=== PATIENT | female | born 1930 | race Caucasian/White ===

== ENCOUNTER 2017-04-14 16:46 | Inpatient (IN) | payer MEDICARE, OTHER ==
[~2017-04-14] VITALS: Ht 160 cm; Wt 74.4 kg
[2017-04-14] MEDS: HEPARIN SODIUM - SQ 10,000 UNITS/ML VIAL SQ SCH (09:00)
[~2017-04-14 16:46] MED LIST: ASPI81 PO; FLUO10TA PO; HYDROCODONE/APAP PO; LISI2.5T3 PO; MOBI7.5S PO; OMEP20TA PO; SIMV20TA PO; TEMA7.5C9 PO
[2017-04-14 17:01] VITALS: BP 212/98; PULSE 105; RESP 21; TEMP 98.7; O2SAT 95
[2017-04-14 17:12] VITALS: BP 212/98; PULSE 106; RESP 19; O2SAT 97
[2017-04-14] MEDS ORDERED: ACETAMINOPHEN 325 MG TAB PO ONE (17:30)
--- NOTE | 2017-04-14 18:57 | RADRPT ---
EXAM DATE/TIME: 04/14/2017 18:04 [facility] COMPARISON: No previous studies available for comparison. INDICATIONS : Left hip pain post fall. MEDICAL HISTORY : Hypertension. SURGICAL HISTORY : Right knee replacement. ENCOUNTER: Initial ACUITY: 1 day PAIN SCORE: 9/10 LOCATION: Left hip. FINDINGS: There is diffuse narrowing of the left hip joint. A fracture is not seen. There is some hypertrophic change at the superior lateral aspect of the left femoral head. Some hypertrophic change seen at the superior left greater trochanter. Vascular calcifications are seen. There is degenerative change in t he lower lumbar spine. There is joint space narrowing seen at the right hip. CONCLUSION: Joint space narrowing seen at the hips bilaterally. An acute fracture is not seen. Rob Churchill MD on April 14, 2017 at 18:54 Board Certified Radiologist. This report was verified electronically.
[2017-04-14 19:05] VITALS: BP 209/95; PULSE 98; RESP 20; O2SAT 96
--- NOTE | 2017-04-14 19:12 | RADRPT ---
EXAM DATE/TIME: 04/14/2017 18:15 [facility] COMPARISON: No previous studies available for comparison. INDICATIONS : Patient fell out of wheelchair face first, abrasion and swollen forehead RADIATION DOSE: 35.52 CTDIvol (mGy) MEDICAL HISTORY : Cerebrovascular disease. Cardiovascular disease Hypertension. SURGICAL HISTORY : None. ENCOUNTER: Initial ACUITY: 1 day PAIN SCALE: 5/10 LOCATION: cranial TECHNIQUE: Multiple contiguous axial images were obtained of the head. Using automated exposure control and adj ustment of the mA and/or kV according to patient size, radiation dose was kept as low as reasonably a chievable to obtain optimal diagnostic quality images. DICOM format image data is available electro nically for review and comparison. FINDINGS: CEREBRUM: There is a lesion right frontal anterior right lobes. There is expansion of the right lateral ventric le. There is a small lacunar infarct at the left basal ganglia. The ventricles are otherwise normal f or age. There is mild decreased density in the periventricular white matter likely due to small vess el ischemic demyelination. No evidence of midline shift, mass lesion, hemorrhage or acute infarction. No extra-axial fluid collections are seen. POSTERIOR FOSSA: The cerebellum and brainstem are intact. The 4th ventricle is midline. The cerebellopontine angle i s unremarkable. EXTRACRANIAL: The visualized portion of the orbits is intact. There is focal soft tissue swelling in the left front al scalp region. There is a small amount of air within the soft tissues in this region. SKULL: The calvaria is intact. No evidence of skull fracture. CONCLUSION: 1. No acute intracranial abnormality. 2. 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 3. Left frontal scalp injury. Rob Churchill MD on April 14, 2017 at 19:07 Board Certified Radiologist. This report was verified electronically.
--- NOTE | 2017-04-14 19:15 | RADRPT ---
EXAM DATE/TIME: 04/14/2017 18:15 [facility] COMPARISON: No previous studies available for comparison. INDICATIONS : Patient fell out of wheelchair face first. RADIATION DOSE: 20.97 CTDIvol (mGy) MEDICAL HISTORY : Cardiovascular disease. Cerebrovascular disease. Hypertension. SURGICAL HISTORY : None. ENCOUNTER: Initial ACUITY: 1 day PAIN SCALE: 5/10 LOCATION: neck TECHNIQUE: Volumetric scanning of the cervical spine was performed. Multiplanar reconstructions in the sagittal, coronal and oblique axial planes were performed. Using automated exposure control and adjustment o f the mA and/or kV according to patient size, radiation dose was kept as low as reasonably achievable to obtain optimal diagnostic quality images. DICOM format image data is available electronically f or review and comparison. FINDINGS: VERTEBRAE: Normal vertebral body height. There is hypertrophic change at the C1-C2 articulation. ALIGNMENT: No evidence of subluxation. C2-C3: The bony spinal canal is normal in size. No evidence of disc bulge or herniation. The neural forami na are bilaterally patent. There is facet hypertrophy. C3-C4: The bony spinal canal is normal in size. No evidence of disc bulge or herniation. The neural forami na are bilaterally patent. There is facet hypertrophy. C4-C5: The bony spinal canal is normal in size. No evidence of disc bulge or herniation. The neural forami na are bilaterally patent. There is facet hypertrophy. C5-C6: The bony spinal canal is normal in size. No evidence of disc bulge or herniation. The neural forami na are bilaterally patent. There is facet hypertrophy. C6-C7: The disc demonstrates decreased height. There is chronic endplate sclerosis seen at this level. A sig nificant impression on the thecal sac is not seen. There is uncovertebral hypertrophy. The bony spina l canal is normal in size. No evidence of disc bulge or herniation. The neural foramina are bilater ally patent. There is facet hypertrophy. C7-T1: The bony spinal canal is normal in size. No evidence of disc bulge or herniation. The neural forami na are bilaterally patent. CONCLUSION: Degenerative change. No acute bony abnormality is seen. Rob Churchill MD on April 14, 2017 at 19:11 Board Certified Radiologist. This report was verified electronically.
[2017-04-14] MEDS ORDERED: MOBI7.5T PO (19:16)
[2017-04-14] MEDS ORDERED: COLA100C5 PO (19:16)
[2017-04-14] MEDS ORDERED: SENN8.6T36 PO (19:16)
[2017-04-14] MEDS ORDERED: TRAM50TA PO (19:16)
[2017-04-14] MEDS ORDERED: ZANT150T2 PO (19:16)
[2017-04-14] MEDS ORDERED: TYLE325T PO (19:16)
[2017-04-14] MEDS ORDERED: ZOLO25TA PO (19:16)
[2017-04-14] MEDS ORDERED: ALBU0.63 NEB (19:16)
[2017-04-14] MEDS ORDERED: LISI40TA PO (19:16)
[2017-04-14] MEDS ORDERED: GUAI100S7 PO (19:16)
[2017-04-14] MEDS ORDERED: MELA3TAB52 PO (19:16)
[2017-04-14] MEDS ORDERED: LIPI10TA PO (19:16)
[2017-04-14] MEDS ORDERED: AMLO5 PO (19:16)
--- NOTE | 2017-04-14 19:25 | PD ---
HPI Chief Complaint: Fall Time Seen by Provider: 17:28 (Arlette Andrews MD) Time Seen by Provider: 21:07 (Ivan Ferguson MD) Travel History International Travel<30 days: No Contact w/Intl Traveler<30days: No Traveled to known affect area: No (Arlette Andrews MD) History of Present Illness HPI Patient is an 86-year-old female who comes in after she fell out of her wheelchair today. She says that she does not know how she fell out, she feels like somebody pushed her. She says she landed on her head in the front side of her body. She denies any loss of consciousness. She says she has pain to the front of her head. She denies any neck pain or back pain. She denies any chest pain or abdominal pain. She denies any blurred vision. She denies any dizziness or nausea or vomiting. (Arlette Andrews MD) [facility] Past Medical History Arthritis: No Asthma: No Autoimmune Disease: No Blood Disorders: No Anxiety: Yes Depression: Yes Heart Rhythm Problems: No Cancer: No Cardiovascular Problems: Yes High Cholesterol: Yes Chemotherapy: No Chest Pain: Yes Congestive Heart Failure: Yes COPD: No Cerebrovascular Accident: Yes Diminished Hearing: No Endocrine: No Gastrointestinal Disorders: Yes GERD: No Genitourinary: No Headaches: No Hepatitis: No Hiatal Hernia: No Hypertension: Yes Immune Disorder: No Musculoskeletal: Yes Neurologic: Yes Psychiatric: Yes Respiratory: Yes Immunizations Current: Yes Myocardial Infarction: Yes Radiation Therapy: No Seizures: Yes Sleep Apnea: No Ulcer: No Tetanus Vaccination: Unknown PNEUMOCCOCAL Vaccine (Year): 1 (Arlette Andrews MD) Past Surgical History Abdominal Surgery: No AICD: No Cardiac Surgery: Yes (by pass surgery) Coronary Artery Bypass Graft: Yes Ear Surgery: No Endocrine Surgery: No Eye Surgery: Yes (right eye cataract removed) Genitourinary Surgery: No Gynecologic Surgery: No Joint Replacement: Yes Oral Surgery: No Pacemaker: No Thoracic Surgery: No Other Surgery: Yes (Arlette Andrews MD) Social History Alcohol Use: No Tobacco Use: No Substance Use: No (Arlette Andrews MD) Allergies-Medications (Allergen,Severity, Reaction): Coded Allergies: No Known Allergies (Verified Adverse Reaction, Unknown, 04/14/17) Reported Meds & Prescriptions Reported Meds & Active Scripts Active Reported Tramadol (Tramadol HCl) 50 Mg Tab 50 Mg PO Q6H PRN Lipitor (Atorvastatin Calcium) 10 Mg Tab 10 Mg PO HS Melatonin 3 Mg Tab 3 Mg PO HS Colace (Docusate Sodium) 100 Mg Capsule 100 Mg PO HS Mobic (Meloxicam) 7.5 Mg Tab 7.5 Mg PO DAILY Lisinopril 40 Mg Tab 40 Mg PO DAILY Norvasc (Amlodipine Besylate) 5 Mg Tab 5 Mg PO DAILY Zantac (Ranitidine HCl) 150 Mg Tab 150 Mg PO BID Senna-Tabs (Sennosides) 8.6 Mg Tab 8.6 Mg PO HS Albuterol Neb (Albuterol Sulfate) 0.63 Mg/3 Ml Neb 0.63 Mg NEB Q6HR PRN Guaifenesin Liq (Guaifenesin) 100 mg/5 ML Soln 200 Mg PO Q4H PRN Tylenol (Acetaminophen) 325 Mg Tab 650 Mg PO Q4H PRN Zoloft (Sertraline HCl) 25 Mg Tab 25 Mg PO DAILY (Ivan Ferguson MD) Review of Systems Except as stated in HPI: all other systems reviewed are Neg General / Constitutional: No: Fever, Chills Eyes: No: Blurred Vision HENT: Positive: Headaches Cardiovascular: No: Chest Pain or Discomfort Respiratory: No: Shortness of Breath Gastrointestinal: No: Nausea, Vomiting Musculoskeletal: No: Edema Skin: No Rash, No Change in Pigmentation Neurologic: No: Weakness, Dizziness (Arlette Andrews MD) Physical Exam Narrative GENERAL: Awake and alert, in no acute distress. SKIN: Focused skin assessment warm/dry. Hematoma to the left forehead. HEAD: Atraumatic. Normocephalic. EYES: Pupils equal and round. No scleral icterus. ENT: Mucous membranes pink and moist. NECK: Trachea midline. No JVD. No cervical spine tenderness. CARDIOVASCULAR: Regular rate and rhythm. No murmur appreciated. RESPIRATORY: No accessory muscle use. Clear to auscultation. No chest wall tenderness. GASTROINTESTINAL: Abdomen soft, non-tender, nondistended. MUSCULOSKELETAL: No obvious deformities. No clubbing. No cyanosis. No edema. Slight tenderness to palpation of the left hip. Able to fully flex and extend both hips. No tenderness to the upper extremities. No tenderness to the thoracic or lumbar spine. NEUROLOGICAL: Awake and alert. No obvious cranial nerve deficits. Motor grossly within normal limits. Normal speech. PSYCHIATRIC: Appropriate mood and affect; insight and judgment normal. (Arlette Andrews MD) Data Data Last Documented VS Vital Signs Date Time Temp Pulse Resp B/P (MAP) Pulse Ox O2 Delivery O2 Flow Rate FiO2 04/14/17 19:05 98 20 209/95 (133) 96 Room Air 04/14/17 17:01 98.7 (Ivan Ferguson MD) Orders Orders Ct Brain W/O Iv Contrast(Rout) (04/14/17 ) Ct Cerv Spine W/O Contrast (04/14/17 ) Acetaminophen (Tylenol) (04/14/17 17:30) Hip, Uni(Ap&Lat) W Ap Pelvis (04/14/17 ) Ed Discharge Order (04/14/17 19:25) Clonidine (Catapres) (04/14/17 19:30) Urinalysis - C+S If Indicated (04/14/17 20:04) Complete Blood Count With Diff (04/14/17 20:04) Comprehensive Metabolic Panel (04/14/17 20:04) Troponin I (04/14/17 20:04) Electrocardiogram (04/14/17 ) Urine Culture (04/14/17 20:30) Levofloxacin (Levaquin) (04/14/17 20:45) Aspirin Chew (Aspirin Chew) (04/14/17 21:15) Nitroglycerin 2% Oint (Nitroglycerin 2% (04/14/17 21:15) (Ivan Ferguson MD) Labs Laboratory Tests Test 04/14/17 20:20 04/14/17 20:30 White Blood Count 16.5 TH/MM3 Red Blood Count 4.76 MIL/MM3 Hemoglobin 14.0 GM/DL Hematocrit 42.2 % Mean Corpuscular Volume 88.5 FL Mean Corpuscular Hemoglobin 29.3 PG Mean Corpuscular Hemoglobin Concent 33.1 % Red Cell Distribution Width 14.3 % Platelet Count 371 TH/MM3 Mean Platelet Volume 6.4 FL Neutrophils (%) (Auto) 78.6 % Lymphocytes (%) (Auto) 12.4 % Monocytes (%) (Auto) 7.3 % Eosinophils (%) (Auto) 0.8 % Basophils (%) (Auto) 0.9 % Neutrophils # (Auto) 12.9 TH/MM3 Lymphocytes # (Auto) 2.1 TH/MM3 Monocytes # (Auto) 1.2 TH/MM3 Eosinophils # (Auto) 0.1 TH/MM3 Basophils # (Auto) 0.2 TH/MM3 CBC Comment DIFF FINAL Differential Comment Blood Urea Nitrogen 22 MG/DL Creatinine 0.88 MG/DL Random Glucose 106 MG/DL Total Protein 7.5 GM/DL Albumin 3.6 GM/DL Calcium Level 9.1 MG/DL Alkaline Phosphatase 155 U/L Aspartate Amino Transf (AST/SGOT) 20 U/L Alanine Aminotransferase (ALT/SGPT) 21 U/L Total Bilirubin 0.5 MG/DL Sodium Level 138 MEQ/L Potassium Level 4.1 MEQ/L Chloride Level 107 MEQ/L Carbon Dioxide Level 24.6 MEQ/L Anion Gap 6 MEQ/L Estimat Glomerular Filtration Rate 61 ML/MIN Troponin I 0.25 NG/ML Urine Color LIGHT-YELLOW Urine Turbidity CLOUDY Urine pH 6.5 Urine Specific Cucumber 1.013 Urine Protein 30 mg/dL Urine Glucose (UA) NEG mg/dL Urine Ketones NEG mg/dL Urine Occult Blood SMALL Urine Nitrite POS Urine Bilirubin NEG Urine Urobilinogen LESS THAN 2.0 MG/DL Urine Leukocyte Esterase LARGE Urine RBC 67 /hpf Urine WBC /hpf Urine Squamous Epithelial Cells 5 /hpf Urine Transitional Epithelial Cells 2 /hpf Urine Amorphous Sediment OCC Urine Bacteria MANY /hpf Urine Mucus FEW /lpf Microscopic Urinalysis Comment CULTURE INDICATED (Ivan Ferguson MD) [facility] Medical Decision Making Medical Screen Exam Complete: Yes Emergency Medical Condition: Yes Medical Record Reviewed: Yes Differential Diagnosis ICH versus fall versus hematoma Narrative Course Patient is a 86-year-old female comes in after she fell out of her wheelchair. Exam shows a hematoma to the left forehead. Patient is not on blood thinners. CT head and C-spine performed show no acute abnormalities. X-ray of the hips and pelvis show no acute abnormalities. Patient given Tylenol. [facility] Advised follow-up with her primary care doctor. Advised to return to the ED as needed for any worsening symptoms. (Arlette Andrews MD) Diagnosis Primary Impression: Fall Qualified Codes: W19.XXXA - Unspecified fall, initial encounter Additional Impressions: UTI (urinary tract infection) Myocardial ischemia Admitting Information Admitting Physician Requests: Admit (Ivan Ferguson MD) Patient Instructions: Fall Prevention (ED), General Instructions Additional Instructions: Follow-up with her primary care doctor. Return to the ED as needed for any worsening symptoms. Condition: Stable Arlette Andrews MD Apr 14, 2017 19:25 Ivan Ferguson MD Apr 14, 2017 21:11
[2017-04-14] MEDS ORDERED: cloNIDine HCL 0.2 MG TAB PO ONE (19:30)
[2017-04-14 20:35] LABS: AUTOMATED NEUTROPHIL # 12.9 TH/MM3 (1.8-7.7); BASOPHIL # 0.2 TH/MM3 (0-0.2); BASOPHIL % 0.9 % (0.0-2.0); EOSINOPHIL # 0.1 TH/MM3 (0-0.4); EOSINOPHIL % 0.8 % (0.0-4.0); HEMATOCRIT 42.2 % (35.0-46.0); HEMO FLAGS DIFF FINAL; LYMPH % 12.4 % (9.0-44.0); LYMPHOCYTE # 2.1 TH/MM3 (1.0-4.8); MEAN CELL VOLUME 88.5 FL (80.0-100.0); MEAN CORPUSCULAR HEMOGLOBIN 29.3 PG (27.0-34.0); MEAN CORPUSCULAR HGB CONC 33.1 % (32.0-36.0); MONO % 7.3 % (0.0-8.0); NEUT % 78.6 % (16.0-70.0); PLATELET COUNT 371 TH/MM3 (150-450); RED BLOOD COUNT 4.76 MIL/MM3 (4.00-5.30); RED CELL DISTRIBUTION WIDTH 14.3 % (11.6-17.2); WHITE BLOOD COUNT 16.5 TH/MM3 (4.0-11.0)
[2017-04-14 20:41] LABS: BACTERIA, URINE MANY /hpf; BLOOD, URINE SMALL (NEG); COMMENT (UR) CULTURE INDICATED; CULTURE IF INDICATED CULTURE INDICATED; GLUCOSE,URINE NEG (NEG); KETONE, URINE NEG (NEG); MUCUS URINE FEW /lpf (OCC); NITRITE,URINE POS (NEG); PH, URINE 6.5 (5.0-8.5); SQUAMOUS EPITHELIAL CELL URINE 5 /hpf (0-5); TRANSITIONAL EPI CELLS, URINE 2 /hpf; URINE COLOR LIGHT-YELLOW (YELLW/STRAW)
[2017-04-14] MEDS ORDERED: LEVOFLOXACIN 750 MG TAB PO ONE (20:45)
[2017-04-14 20:54] LABS: ANION GAP 6 MEQ/L (5-15); AST (GOT) 20 U/L (15-37); BICARBONATE 24.6 MEQ/L (21.0-32.0); BLOOD UREA NITROGEN 22 MG/DL (7-18); CHLORIDE 107 MEQ/L (98-107); GLOMERULAR FILTRATION RATE 61 ML/MIN (>89); POTASSIUM 4.1 MEQ/L (3.5-5.1); SODIUM (NA) 138 MEQ/L (136-145)
[2017-04-14 20:55] LABS: ALT (GPT) 21 U/L (10-53)
[2017-04-14 20:59] LABS: ALKALINE PHOSPHATASE 155 U/L (45-117); TOTAL BILIRUBIN ADULT 0.5 MG/DL (0.2-1.0)
[2017-04-14 21:15] VITALS: BP 120/56; PULSE 93; RESP 20; O2SAT 96
[2017-04-14] MEDS ORDERED: NITROGLYCERIN 2% OINT 1 GM PACKET TOPICAL ONE (21:15)
[2017-04-14] MEDS ORDERED: ASPIRIN 81 MG CHEW TAB CHEW ONE (21:15)
[2017-04-14] MEDS ORDERED: SODIUM CHLORIDE 0.9% FLUSH 10 ML FLUSH IV FLUSH PRN (21:45)
--- NOTE | 2017-04-14 22:41 | RADRPT ---
EXAM DATE/TIME: 04/14/2017 22:25 [facility] COMPARISON: No previous studies available for comparison. INDICATIONS : Left 2nd digit pain ,swelling and bruising. MEDICAL HISTORY : None. SURGICAL HISTORY : None. ENCOUNTER: Initial ACUITY: 1 day PAIN SCORE: 10/10 LOCATION: Left 2nd digit FINDINGS: There is joint space narrowing at the second through fifth DIP and PIP joints. There is hypertrophic change at the second PIP joint. There is hypertrophic change at the first carpometacarpal joint regio n. No acute fractures seen. The bones appear osteopenic. CONCLUSION: Degenerative change. Rob Churchill MD on April 14, 2017 at 22:38 Board Certified Radiologist. This report was verified electronically.
[2017-04-14 22:55] VITALS: BP 107/57; PULSE 82; RESP 18; TEMP 97.9; O2SAT 95
[2017-04-14 22:56] LABS: APTT (PATIENT) 27.1 SEC (24.3-30.1); PROTHROMBIN TIME - PATIENT 10.9 SEC (9.8-11.6)
[2017-04-15] VITALS (7 sets, daily range): BP systolic 93–155; BP diastolic 56–70; PULSE 70–101; RESP 20; TEMP 98–99.3; O2SAT 93–100
[2017-04-15] MEDS ORDERED: PILL SPLITTER OTHER PRN ×2 (00:30→14:30)
[2017-04-15] MEDS ORDERED: traMADol HCL 50 MG TAB PO PRN (00:30)
--- NOTE | 2017-04-15 00:54 | HHI.HP ---
[facility] Chino Queen MD Admission Diagnosis myocardial ischemia Diagnoses: Travel History International Travel<30 Days: No Contact w/Intl Traveler <30 Da: No Traveled to Known Affected Are: No History of Present Illness 86-year-old female presents to the emergency department after falling out of her wheelchair onto her face. The patient states she is not sure how she fell, but it felt like someone pushed her from behind. She denies any loss of consciousness. The patient has a significant hematoma over her left eye and forehead. CT of the head showed no acute intracranial abnormality with a left frontal scalp injury. The patient reports neck pain, nontender to palpation. CT of the neck without any bony abnormalities. During her workup in the emergency department, the patient was found to have a leukocytosis of 16.5. UA consistent with UTI. The patient reports dysuria. She was tachycardic to 106 in the emergency department. Troponin elevated to 0.25. EKG showed ST depression in I, AVL and flattened T waves in V5/V6. Patient denies chest pain. She has a history significant for coronary artery disease and is status post CABG 4 in 2005. Review of Systems Denies fever or chills Denies blurry vision, otorrhea, rhinorrhea Denies sore throat and cough No chest pain, palpitations, shortness of breath No abdominal pain Denies constipation/diarrhea/nausea/vomiting Denies muscle pain/weakness No rashes Past Family Social History Past Medical History Hyperlipidemia Hypertension Neuropathy CAD status post CABG 4 in 2005 CVA Past Surgical History CABG 4 in 2005 Left knee replacement Prosthetic leg - right Right carotid endarterectomy Reported Medications Reported Meds & Active Scripts Active Reported Tramadol (Tramadol HCl) 50 Mg Tab 50 Mg PO Q6H PRN Lipitor (Atorvastatin Calcium) 10 Mg Tab 10 Mg PO HS Melatonin 3 Mg Tab 3 Mg PO HS Colace (Docusate Sodium) 100 Mg Capsule 100 Mg PO HS Mobic (Meloxicam) 7.5 Mg Tab 7.5 Mg PO DAILY Lisinopril 40 Mg Tab 40 Mg PO DAILY Norvasc (Amlodipine Besylate) 5 Mg Tab 5 Mg PO DAILY Zantac (Ranitidine HCl) 150 Mg Tab 150 Mg PO BID Senna-Tabs (Sennosides) 8.6 Mg Tab 8.6 Mg PO HS Albuterol Neb (Albuterol Sulfate) 0.63 Mg/3 Ml Neb 0.63 Mg NEB Q6HR PRN Guaifenesin Liq (Guaifenesin) 100 mg/5 ML Soln 200 Mg PO Q4H PRN Tylenol (Acetaminophen) 325 Mg Tab 650 Mg PO Q4H PRN Zoloft (Sertraline HCl) 25 Mg Tab 25 Mg PO DAILY Allergies: Coded Allergies: No Known Allergies (Verified Allergy, Unknown, 04/14/17) Family History Remote family history of diabetes. Social History Denies alcohol, tobacco or illicit drugs. Physical Exam Vital Signs Vital Signs Date Time Temp Pulse Resp B/P (MAP) Pulse Ox O2 Delivery O2 Flow Rate FiO2 04/14/17 22:50 04/14/17 21:15 93 20 120/56 (77) 96 Room Air 04/14/17 19:05 98 20 209/95 (133) 96 Room Air 04/14/17 17:12 106 18 96 Room Air 04/14/17 17:12 106 19 212/98 (136) 97 Room Air 04/14/17 17:04 105 21 95 Room Air 04/14/17 17:01 98.7 105 21 212/98 (136) 95 Physical Exam GENERAL: Elderly female lying in bed SKIN: Large hematoma on left forehead and surrounding left eye. HEAD: Normocephalic. No temporal or scalp tenderness. EYES: Pupils equal round and reactive. Extraocular motions intact. No scleral icterus. No injection or drainage. ENT: Nose without bleeding, purulent drainage or septal hematoma. Throat without erythema, tonsillar hypertrophy or exudate. Uvula midline. Airway patent. NECK: Trachea midline. No JVD or lymphadenopathy. Supple, nontender, no meningeal signs. No step-offs or point tenderness. CARDIOVASCULAR: Regular rate and rhythm. 3/5 systolic ejection murmur. RESPIRATORY: Clear to auscultation. Breath sounds equal bilaterally. No wheezes , rales, or rhonchi. GASTROINTESTINAL: Abdomen soft, non-tender, nondistended. No hepato-splenomegaly , or palpable masses. No guarding. MUSCULOSKELETAL: Extremities without clubbing, cyanosis, or edema. No joint tenderness, effusion, or edema noted. Right prosthesis in place. NEUROLOGICAL: Awake and alert. Cranial nerves II through XII intact. Motor and sensory grossly within normal limits. Normal speech. A&O 3. Laboratory Laboratory Tests Test 04/14/17 20:20 04/14/17 20:30 04/14/17 22:35 White Blood Count 16.5 Red Blood Count 4.76 Hemoglobin 14.0 Hematocrit 42.2 Mean Corpuscular Volume 88.5 Mean Corpuscular Hemoglobin 29.3 Mean Corpuscular Hemoglobin Concent 33.1 Red Cell Distribution Width 14.3 Platelet Count 371 Mean Platelet Volume 6.4 Neutrophils (%) (Auto) 78.6 Lymphocytes (%) (Auto) 12.4 Monocytes (%) (Auto) 7.3 Eosinophils (%) (Auto) 0.8 Basophils (%) (Auto) 0.9 Neutrophils # (Auto) 12.9 Lymphocytes # (Auto) 2.1 Monocytes # (Auto) 1.2 Eosinophils # (Auto) 0.1 Basophils # (Auto) 0.2 CBC Comment DIFF FINAL Differential Comment Blood Urea Nitrogen 22 Creatinine 0.88 Random Glucose 106 Total Protein 7.5 Albumin 3.6 Calcium Level 9.1 Alkaline Phosphatase 155 Aspartate Amino Transf (AST/SGOT) 20 Alanine Aminotransferase (ALT/SGPT) 21 Total Bilirubin 0.5 Sodium Level 138 Potassium Level 4.1 Chloride Level 107 Carbon Dioxide Level 24.6 Anion Gap 6 Estimat Glomerular Filtration Rate 61 Troponin I 0.25 Urine Color LIGHT-YELLOW Urine Turbidity CLOUDY Urine pH 6.5 Urine Specific [place] 1.013 Urine Protein 30 Urine Glucose (UA) NEG Urine Ketones NEG Urine Occult Blood SMALL Urine Nitrite POS Urine Bilirubin NEG Urine Urobilinogen LESS THAN 2.0 Urine Leukocyte Esterase LARGE Urine RBC 67 Urine WBC Urine Squamous Epithelial Cells 5 Urine Transitional Epithelial Cells 2 Urine Amorphous Sediment OCC Urine Bacteria MANY Urine Mucus FEW Microscopic Urinalysis Comment CULTURE INDICATED Prothrombin Time 10.9 Prothromb Time International Ratio 1.0 Activated Partial Thromboplast Time 27.1 Date/Time Source Procedure Growth Status 04/14/17 20:30 Urine Clean Catch Urine Culture Pending Received Result Diagram: 04/14/17201904/14/172019 Caprini VTE Risk Assessment Caprini VTE Risk Assessment: Mod/High Risk (score >= 2) Caprini Risk Assessment Model Point Value = 1 Point Value = 2 Point Value = 3 Point Value = 5 Age 41-60 Minor surgery BMI > 25 kg/m2 Swollen legs Varicose veins or History of unexplained or recurrent spontaneous Oral contraceptives or hormone replacement Sepsis (< 1 month) Serious lung disease, including pneumonia (< 1 month) Abnormal pulmonary function Acute myocardial infarction Congestive heart failure (< 1 month) History of inflammatory bowel disease Medical patient at bed rest Age 61-74 Arthroscopic surgery Major open surgery (> 45 min) Laparoscopic surgery (> 45 min) Malignancy Confined to bed (> 72 hours) Immobilizing plaster cast Central venous access Age >= 75 History of VTE Family history of VTE Factor V Leiden Prothrombin [id number] Lupus anticoagulant Anticardiolipin antibodies Elevated serum homocysteine Heparin-induced thrombocytopenia Other congenital or acquired thrombophilia Stroke (< 1 month) Elective arthroplasty Hip, pelvis, or leg fracture Acute spinal cord injury (< 1 month) Prophylaxis Regimen Total Risk Factor Score Risk Level Prophylaxis Regimen 0-1 Low Early ambulation 2 Moderate Order ONE of the following: *Sequential Compression Device (SCD) *Heparin 5000 units SQ BID 3-4 Higher Order ONE of the following medications: *Heparin 5000 units SQ TID *Enoxaparin/Lovenox 40 mg SQ daily (WT < 150 kg, CrCl > 30 mL/min) *Enoxaparin/Lovenox 30 mg SQ daily (WT < 150 kg, CrCl > 10-29 mL/min) *Enoxaparin/Lovenox 30 mg SQ BID (WT < 150 kg, CrCl > 30 mL/min) AND/OR *Sequential Compression Device (SCD) 5 or more Highest Order ONE of the following medications: *Heparin 5000 units SQ TID (Preferred with Epidurals) *Enoxaparin/Lovenox 40 mg SQ daily (WT < 150 kg, CrCl > 30 mL/min) *Enoxaparin/Lovenox 30 mg SQ daily (WT < 150 kg, CrCl > 10-29 mL/min) *Enoxaparin/Lovenox 30 mg SQ BID (WT < 150 kg, CrCl > 30 mL/min) AND *Sequential Compression Device (SCD) Assessment and Plan Assessment and Plan 86-year-old female with a past medical history significant for hypertension, hyperlipidemia coronary artery disease status post CABG 4 in 2005, remote history of CVA and neuropathy presents after falling from her wheelchair in her assisted living facility. During her workup in the ED, the patient was found to have a leukocytosis with a urinary tract infection, elevated troponin and an abnormal EKG. 1. 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 Sepsis Patient meets sepsis criteria with leukocytosis and tachycardia Probable source is urinary tract infection Urine culture pending Blood culture pending Chest x-ray pending 3. UTI UA significant for large leukocyte esterase with positive nitrates Rocephin 4. Fall Patient sustained frontal hematoma, imaging including head and neck CT showed no intracranial bleed or bony abnormality Denies loss of consciousness Neuro checks q4h 5. HTN/HLD/Neuropathy Continue home medications FEN NPO until evaluated by cardiology NS at 75 cc/hr Electrolytes: Monitor and replete prn Holding pharmacologic anticoagulation secondary to head trauma Physician Certification 2 Midnight Certification Type: Admission for Inpatient Services Order for Inpatient Services The services are ordered in accordance with Medicare regulations or non- Medicare payer requirements, as applicable. In the case of services not specified as inpatient-only, they are appropriately provided as inpatient services in accordance with the 2-midnight benchmark. Estimated LOS (days): 2 2 days is the estimated time the patient will need to remain in the hospital, assuming treatment plan goals are met and no additional complications. Post-Hospital Plan: Not yet determined Kezia Pederson MD Apr 15, 2017 00:54
--- NOTE | 2017-04-15 01:12 | RADRPT ---
EXAM DATE/TIME: 04/15/2017 00:45 [place] COMPARISON: No previous studies available for comparison. INDICATIONS : Fever. MEDICAL HISTORY : Cerebrovascular disease. Cardiovascular disease Hypertension. SURGICAL HISTORY : CABG. ENCOUNTER: Initial ACUITY: 1 day PAIN SCORE: Non-responsive. LOCATION: Bilateral chest FINDINGS: A single view of the chest demonstrates the lungs to be symmetrically aerated without evidence of mas s, infiltrate or effusion except for minimal atelectasis left midlung zone. Clips and wires suggest C ABG. Marked atherosclerotic disease. The cardiomediastinal contours are unremarkable. Osseous struc tures are intact. CONCLUSION: Clips and wires suggest CABG. Minimal atelectasis left midlung zone. Epicardial wire overlies left ch est. Miguelito Dawn MD on April 15, 2017 at 1:10 Board Certified Radiologist. This report was verified electronically.
[2017-04-15 03:41] LABS: BASOPHIL # 0.1 TH/MM3 (0-0.2); BASOPHIL % 0.8 % (0.0-2.0); EOSINOPHIL # 0.1 TH/MM3 (0-0.4); EOSINOPHIL % 1.1 % (0.0-4.0); HEMATOCRIT 37.9 % (35.0-46.0); HEMO FLAGS DIFF FINAL; LYMPH % 15.1 % (9.0-44.0); LYMPHOCYTE # 1.9 TH/MM3 (1.0-4.8); MEAN CORPUSCULAR HEMOGLOBIN 29.2 PG (27.0-34.0); MEAN CORPUSCULAR HGB CONC 32.7 % (32.0-36.0); MONO % 9.4 % (0.0-8.0); NEUT % 73.6 % (16.0-70.0); PLATELET COUNT 317 TH/MM3 (150-450); RED BLOOD COUNT 4.26 MIL/MM3 (4.00-5.30); RED CELL DISTRIBUTION WIDTH 14.1 % (11.6-17.2); WHITE BLOOD COUNT 12.3 TH/MM3 (4.0-11.0)
[2017-04-15 04:04] LABS: BICARBONATE 25.6 MEQ/L (21.0-32.0); POTASSIUM 4.4 MEQ/L (3.5-5.1)
[2017-04-15 04:06] LABS: HDL CHOLESTEROL 45.9 MG/DL (40.0-60.0)
[2017-04-15] MEDS ORDERED: FAMOTIDINE 20 MG TAB PO SCH (09:00)
[2017-04-15] MEDS: SERTRALINE HCL 50 MG TAB PO SCH (09:40)
[2017-04-15] MEDS: SODIUM CHLORIDE 0.9% FLUSH 10 ML FLUSH IV FLUSH SCH ×2 (09:40→20:30)
[2017-04-15] MEDS: NITROGLYCERIN 2% OINT 1 GM PACKET TOP SCH ×2 (09:41→20:30)
[2017-04-15] MEDS: LISINOPRIL 20 MG TAB PO SCH (09:41)
[2017-04-15] MEDS: amLODIPine BESYLATE 5 MG TAB PO SCH (09:41)
[2017-04-15] MEDS: cefTRIAXone INJ 1,000 MG in SODIUM CHLORIDE 0.9% INJ 100 ML IV SCH (09:55)
--- NOTE | 2017-04-15 10:03 | MB ---
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 The patient hit the left side of her face sustaining significant hematoma. She denies any loss of consciousness, chest pain, palpitations, shortness of breath or dizziness. CT of the head and neck showed no acute abnormalities. The urinalysis is consistent with a UTI. He had leukocytosis. Troponin is 0.259. An EKG is showing sinus rhythm with nonspecific ST changes. The patient has been consulted to cardiology for further management and evaluation. REVIEW OF SYSTEMS Negative except for what is mentioned in the HPI. PAST MEDICAL HISTORY 1. Hyperlipidemia 2. Hypertension 3. Neuropathy 4. CAD status post CABG x4 in 2005 5. Stroke with left-sided hemiparesis and wheelchair bound. PAST SURGICAL HISTORY 1. CABG x4 2. Left knee replacement, prosthetic leg 3. Right carotid endarterectomy CARDIAC HOME MEDICATIONS 1. Lipitor 2. Lisinopril 3. Norvasc ALLERGIES NO KNOWN DRUG ALLERGIES. FAMILY HISTORY Noncontributory SOCIAL HISTORY Denies alcohol, tobacco or illicit drug use. PHYSICAL EXAMINATION VITAL SIGNS: Temperature 98.3, respiratory rate 20, heart rate 88, blood pressure 111/59, O2 sat 98% room air. GENERAL: She is awake, alert, and oriented x3 in no acute distress. NECK: No JVD, no carotid bruits. HEART: Regular rate and rhythm. No murmurs, rubs or gallops. LUNGS: Poor inspiratory effort. No wheezes or rhonchi or rales. ABDOMEN: Benign. EXTREMITIES: No cyanosis or edema. Pulses throughout. DATA CBC hemoglobin 12, hematocrit 37, platelet count 317, WBC 16.5 trending down to 12.3, INR 1. Chemistries, sodium 140, potassium 4.4, BUN 27, creatinine 0.99, troponin 0.25 and 0.34, triglycerides 130, cholesterol 146, LDL 74, HDL 45. Urinalysis significant for a urinary tract infection. Chest x-ray, no acute cardiopulmonary process. Head CT, no acute intracranial abnormality. Left frontal scalp injury. Hip and pelvis x-ray, no acute fractures. EKG normal sinus rhythm with nonspecific ST changes. ASSESSMENT/PLAN 86-year-old female with known history of coronary artery disease, hypertension, hyperlipidemia, remote history of CVA admitted after a fall. She does have minimally elevated troponins, however no symptoms of ACS. She denies dizziness , chest pain, shortness of breath, palpitations, leg edema or fatigue. She does have a UTI that is being treated with antibiotics. After a thorough discussion with the patient, as well as with her family about treatment options to treat her elevated troponins and further analyze progression of CAD or risk stratification of CAD, they would not like to have any invasive management of her CAD. They declined left heart cath or any other invasive measures. Thus continue aggressive medical management for CAD, hypertension and diabetes. The patient should be on aspirin, beta-yesenia, statin, PINEDA inhibitors and long- acting Imdur, as tolerated by heart rate and blood pressure. Continue cycling cardiac enzymes until they start trending down. Given significant face hematoma she is not candidate for anticoagulation. Get a 2-D echocardiogram to assess LV systolic function. Thank you for the opportunity to take part in the care of this patient. We will be available on as needed basis for any other questions or concerns. MD MARIA EUGENIA Moran/VIOLET /9:38 AM /9:57 AM MARCIA
--- NOTE | 2017-04-15 12:53 | HHI.PR ---
Subjective Remarks Follow-up for elevated troponin, fall, UTI Patient stated that she did have some dysuria this morning. She is very anxious to go home. She denies any headache, visual changes, any focal neurological deficits. Patient stated that she lives with her daughter and prior from this incident she was walking on her own. Objective Vitals Vital Signs Date Time Temp Pulse Resp B/P (MAP) Pulse Ox O2 Delivery O2 Flow Rate FiO2 04/15/17 12:00 98.5 91 20 125/58 (80) 95 04/15/17 08:00 98.3 88 20 93/56 (68) 98 04/15/17 08:00 Room Air 04/15/17 06:22 81 04/15/17 04:00 98.0 85 20 139/62 (87) 96 04/15/17 00:00 98.2 82 20 111/59 (76) 97 04/15/17 00:00 Room Air 04/14/17 22:55 97.9 82 18 107/57 (74) 95 04/14/17 22:50 04/14/17 21:15 93 20 120/56 (77) 96 Room Air 04/14/17 19:05 98 20 209/95 (133) 96 Room Air 04/14/17 17:12 106 18 96 Room Air 04/14/17 17:12 106 19 212/98 (136) 97 Room Air 04/14/17 17:04 105 21 95 Room Air 04/14/17 17:01 98.7 105 21 212/98 (136) 95 Result Diagram: 04/15/17 0320 04/15/17 0320 Objective Remarks GENERAL: in NAD EYES: No scleral icterus. No injection or drainage. Ecchymosis around left eye. NECK: Supple, trachea midline. No JVD or lymphadenopathy. CARDIOVASCULAR: Regular rate and rhythm without murmurs, gallops, or rubs. RESPIRATORY: Breath sounds equal bilaterally. No accessory muscle use. GASTROINTESTINAL: Abdomen soft, non-tender, nondistended. MUSCULOSKELETAL: No cyanosis, or edema. BACK: Nontender without obvious deformity. No CVA tenderness. Medications and IVs Current Medications Acetaminophen (Tylenol) 650 mg ONCE ONCE PO Last administered on 04/14/17t 17 :55; Start 04/14/17 at 17:30; Stop 04/14/17 at 17:31; Status DC Clonidine (Catapres) 0.2 mg ONCE ONCE PO Last administered on 04/14/17 19:50 ; Start 04/14/17 at 19:30; Stop 04/14/17 at 19:31; Status DC Levofloxacin (Levaquin) 750 mg ONCE ONCE PO Last administered on 04/14/17 21 :07; Start 04/14/17 at 20:45; Stop 04/14/17 at 20:46; Status DC Aspirin (Aspirin Chew) 324 mg ONCE ONCE CHEW Last administered on 04/14/17 21:12; Start 04/14/17 at 21:15; Stop 04/14/17 at 21:16; Status DC Nitroglycerin (Nitroglycerin 2% Oint) 1 inch ONCE ONCE TOPICAL Last administered on 04/14/17 21:12; Start 04/14/17 at 21:15; Stop 04/14/17 at 21 :16; Status DC Ceftriaxone Sodium 1000 mg/ Sodium Chloride 100 ml @ 200 mls/hr Q24H IV Last administered on 04/15/17 09:55; Start 04/15/17 at 09:00 Sodium Chloride (NS Flush) 2 ml BID IV FLUSH Last administered on 04/15/17 09 :40; Start 04/15/17 at 09:00 Sodium Chloride (NS Flush) 2 ml UNSCH PRN IV FLUSH FLUSH AFTER USING IV ACCESS ; Start 04/14/17 at 21:45 Nitroglycerin (Nitroglycerin 2% Oint) 1 inch Q12HR TOP Last administered on 09:41; Start 04/15/17 at 09:00 Heparin Sodium (Porcine) (Heparin Inj) 5,000 units Q12HR SQ ; Start 04/14/17 at 21:45 Amlodipine Besylate (Norvasc) 5 mg DAILY PO Last administered on 04/15/17 09: 41; Start 04/15/17 at 09:00 Atorvastatin Calcium (Lipitor) 10 mg HS PO ; Start 04/15/17 at 21:00 Sertraline HCl (Zoloft) 25 mg DAILY PO Last administered on 04/15/17 09:40; Start 04/15/17 at 09:00 Lisinopril (Prinivil) 40 mg DAILY PO Last administered on 04/15/17 09:41; Start 04/15/17 at 09:00 Famotidine (Pepcid) 20 mg Q12HR PO Last administered on 04/15/17 09:40; Start 04/15/17 at 09:00 Tramadol HCl (Ultram) 50 mg Q6H PRN PO pain 6-10; Start 04/15/17 at 00:30 Miscellaneous (Pill Splitter) 1 ea UNSCH PRN OTHER SEE LABEL COMMENTS; Start 04/15/17 at 00:30 A/P Assessment and Plan 86-year-old female with a past medical history significant for hypertension, hyperlipidemia coronary artery disease status post CABG 4 in 2005, remote history of CVA and neuropathy presents after falling from her wheelchair in her assisted living facility. During her workup in the ED, the patient was found to have a leukocytosis with a urinary tract infection, elevated troponin and an abnormal EKG. 1. Elevated troponin/Abnormal EKG/CAD Patient's troponin elevated to 0.25 with normal renal function EKG significant for ST depression in leads I/AVL and flattened T waves in V5/V6, H/O CABG x 4 in 2005 Loss Prevention Consultant consulted and family/patient does not want any further intervention and declined cardiac catheterization. Continue with medical management. 2. Sepsis Patient meets sepsis criteria with leukocytosis and tachycardia Probable source is urinary tract infection Patient was put on Rocephin. Pending blood cultures and urine cultures. 3. UTI UA significant for large leukocyte esterase with positive nitrates she is also symptomatic. Rocephin Continue with treatment as above. 4. Fall Patient sustained frontal hematoma, imaging including head and neck CT showed no intracranial bleed or bony abnormality Denies loss of consciousness Neuro checks q4h Will consult physical therapist. 5. HTN/HLD/Neuropathy Continue home medications DVT prophylaxis -Due to fall resulting and frontal hematoma chemoprophylaxis contraindicated. SCD Discharge Planning Pending final cultures before discharge. Patient also need to be evaluated by physical therapist to determine placement. Mckenzie Degroot MD Apr 15, 2017 12:53
--- NOTE | 2017-04-15 17:45 | EKG ---
Date Performed: 04/14/2017 Time Performed: 20:21:28 PTAGE: 86 years EKG: Sinus rhythm ST DEVIATION AND MODERATE T-WAVE ABNORMALITY, CONSIDER LATERAL ISCHEMIA ABNORMAL ECG PREVIOUS TRACING : 11/28/2007 13.39 EKG changes consistent with acute inferior ST segment eleva tion infarction. These findings are new since the prior tracing, and while they may be rate related, clinical correlation will be important. DOCTOR: Leann Rivas Interpretating Date/Time 04/15/2017 17:45:26
--- NOTE | 2017-04-15 17:51 | EKG ---
Date Performed: 04/15/2017 Time Performed: 06:58:14 PTAGE: 86 years EKG: Sinus rhythm LEFT VENTRICULAR HYPERTROPHY AND ST-T CHANGE ABNORMAL ECG PREVIOUS TRACING : 04/14/2017 20.21 Possible inferior wall infarct of indeterminate age. Since the prior tracing, there has been improvement in the inferior ST elevation, particularly in lead V3, and improvement in the lateral ST segment depression. Clinical correlation will be necessary to exclu de reversible myocardial ischemia. DOCTOR: Leann Rivas Interpretating Date/Time 04/15/2017 17:50:28
[2017-04-15] MEDS: FAMOTIDINE 20 MG TAB PO SCH (20:30)
[2017-04-15] MEDS: HEPARIN SODIUM - SQ 10,000 UNITS/ML VIAL SQ SCH (20:30)
[2017-04-15] MEDS ORDERED: ATORVASTATIN 10 MG TAB PO SCH (21:00)
[2017-04-15 22:35] LABS: CREATINE KINASE 87 U/L (26-192)
[2017-04-16] VITALS (7 sets, daily range): BP systolic 128–154; BP diastolic 60–68; PULSE 78–88; RESP 16–22; TEMP 98.1–98.7; O2SAT 94–98
[2017-04-16 04:52] LABS: CREATINE KINASE 73 U/L (26-192)
[2017-04-16] MEDS: cefTRIAXone INJ 1,000 MG in SODIUM CHLORIDE 0.9% INJ 100 ML IV SCH (09:15)
[2017-04-16] MEDS: HEPARIN SODIUM - SQ 10,000 UNITS/ML VIAL SQ SCH (09:17)
[2017-04-16] MEDS: NITROGLYCERIN 2% OINT 1 GM PACKET TOP SCH (09:18)
[2017-04-16] MEDS: SERTRALINE HCL 50 MG TAB PO SCH (09:18)
[2017-04-16] MEDS: amLODIPine BESYLATE 5 MG TAB PO SCH (09:18)
[2017-04-16] MEDS: FAMOTIDINE 20 MG TAB PO SCH (09:18)
[2017-04-16] MEDS: LISINOPRIL 20 MG TAB PO SCH (09:18)
[2017-04-16] MEDS: SODIUM CHLORIDE 0.9% FLUSH 10 ML FLUSH IV FLUSH SCH (09:33)
[2017-04-16] MEDS ORDERED: BACT800T5 PO (12:08)
[2017-04-16] MEDS ORDERED: METO25TA3 PO (12:15)
--- NOTE | 2017-04-16 13:21 | HHI.DS ---
Discharge Summary Admission Date Apr 14, 2017 at 23:42 Discharge Date: Apr 16, 2017 Admitting Diagnosis myocardial ischemia (1) UTI (urinary tract infection) ICD Code: N39.0 - Urinary tract infection, site not specified Status: Acute (2) Myocardial ischemia ICD Code: I25.9 - Chronic ischemic heart disease, unspecified Status: Acute (3) Fall ICD Code: W19.XXXA - Unspecified fall, initial encounter Status: Acute Procedures none Brief History - From Admission 86-year-old female presents to the emergency department after falling out of her wheelchair onto her face. The patient states she is not sure how she fell, but it felt like someone pushed her from behind. She denies any loss of consciousness. The patient has a significant hematoma over her left eye and forehead. CT of the head showed no acute intracranial abnormality with a left frontal scalp injury. The patient reports neck pain, nontender to palpation. CT of the neck without any bony abnormalities. During her workup in the emergency department, the patient was found to have a leukocytosis of 16.5. UA consistent with UTI. The patient reports dysuria. She was tachycardic to 106 in the emergency department. Troponin elevated to 0.25. EKG showed ST depression in I, AVL and flattened T waves in V5/V6. Patient denies chest pain. She has a history significant for coronary artery disease and is status post CABG 4 in 2005. CBC/BMP: 04/15/17 0320 04/15/17 0320 Significant Findings Laboratory Tests Test 04/14/17 20:20 04/14/17 20:30 04/14/17 22:35 04/15/17 01:10 White Blood Count 16.5 TH/MM3 (4.0-11.0) Mean Platelet Volume 6.4 FL (7.0-11.0) Neutrophils (%) (Auto) 78.6 % (16.0-70.0) Neutrophils # (Auto) 12.9 TH/MM3 (1.8-7.7) Monocytes # (Auto) 1.2 TH/MM3 (0-0.9) Blood Urea Nitrogen 22 MG/DL (7-18) Alkaline Phosphatase 155 U/L (45-117) Estimat Glomerular Filtration Rate 61 ML/MIN (>89) Troponin I 0.25 NG/ML (0.02-0.05) B-Type Natriuretic Peptide 160 PG/ML (0-100) Urine Turbidity CLOUDY (CLEAR) Urine Protein 30 mg/dL (NEG-TRACE) Urine Occult Blood SMALL (NEG) Urine Nitrite POS (NEG) Urine Leukocyte Esterase LARGE (NEG) Urine RBC 67 /hpf (0-3) Urine Bacteria MANY /hpf (NONE) Urine Mucus FEW /lpf (OCC) Test 04/15/17 03:20 04/15/17 09:36 04/15/17 14:00 04/15/17 21:50 White Blood Count 12.3 TH/MM3 (4.0-11.0) Mean Platelet Volume 6.6 FL (7.0-11.0) Neutrophils (%) (Auto) 73.6 % (16.0-70.0) Monocytes (%) (Auto) 9.4 % (0.0-8.0) Neutrophils # (Auto) 9.0 TH/MM3 (1.8-7.7) Monocytes # (Auto) 1.2 TH/MM3 (0-0.9) Blood Urea Nitrogen 27 MG/DL (7-18) Estimat Glomerular Filtration Rate 53 ML/MIN (>89) Troponin I 0.34 NG/ML (0.02-0.05) 0.29 NG/ML (0.02-0.05) 0.24 NG/ML (0.02-0.05) Test 04/16/17 03:18 Imaging Last Impressions Chest X-Ray 04/15/17 0000 Signed Impressions: Service Date/Time: March 00:45 - CONCLUSION: Clips and wires suggest CABG. Minimal atelectasis left midlung zone. Epicardial wire overlies left chest. Miguelito Dawn MD Hip and Pelvis X-Ray 04/14/17 0000 Signed Impressions: Service Date/Time: Friday, April 14, 2017 18:04 - CONCLUSION: Joint space narrowing seen at the hips bilaterally. An acute fracture is not seen. Rob Churchill MD Head CT 04/14/17 0000 Signed Impressions: Service Date/Time: Friday, April 14, 2017 18:15 - CONCLUSION: 1. No acute intracranial abnormality. 2. 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 3. Left frontal scalp injury. Rob Churchill MD Finger X-Ray 04/14/17 0000 Signed Impressions: Service Date/Time: Friday, April 14, 2017 22:25 - CONCLUSION: Degenerative change. Rob Churchill MD Cervical Spine CT 04/14/17 0000 Signed Impressions: Service Date/Time: Friday, April 14, 2017 18:15 - CONCLUSION: Degenerative change. No acute bony abnormality is seen. Rob Churchill MD PE at Discharge GENERAL: in NAD EYES: No scleral icterus. No injection or drainage. Ecchymosis around left eye. NECK: Supple, trachea midline. No JVD or lymphadenopathy. CARDIOVASCULAR: Regular rate and rhythm without murmurs, gallops, or rubs. RESPIRATORY: Breath sounds equal bilaterally. No accessory muscle use. GASTROINTESTINAL: Abdomen soft, non-tender, nondistended. MUSCULOSKELETAL: No cyanosis, or edema. BACK: Nontender without obvious deformity. No CVA tenderness. Hospital Course 86-year-old female with a past medical history significant for hypertension, hyperlipidemia coronary artery disease status post CABG 4 in 2005, remote history of CVA and neuropathy presents after falling from her wheelchair in her assisted living facility. During her workup in the ED, the patient was found to have a leukocytosis with a urinary tract infection, elevated troponin and an abnormal EKG. 1. Elevated troponin/Abnormal EKG/CAD Patient's troponin elevated 0.25, 0.34, 0.29, 0.24 with normal renal function EKG significant for ST depression in leads I/AVL and flattened T waves in V5/V6, H/O CABG x 4 in 2005 Service Member consulted and family/patient does not want any further intervention and declined cardiac catheterization. Continue with medical management. Patient DC on PINEDA and low dose BB 2. Sepsis On admission patient meets sepsis criteria with leukocytosis and tachycardia Probable source is urinary tract infection urine culture positive for e coli sensitive to Bactrim Patient was put on Rocephin in hospital change to Bactrim at time of DC. 3. UTI urine culture positive for e coli sensitive to Bactrim Patient was put on Rocephin in hospital change to Bactrim at time of DC. 4. Fall Patient sustained frontal hematoma, imaging including head and neck CT showed no intracranial bleed or bony abnormality Denies loss of consciousness Neuro checks q4h continue physical therapist at SNF 5. HTN/HLD/Neuropathy Continue home medications DVT prophylaxis -Due to fall resulting and frontal hematoma chemoprophylaxis contraindicated. SCD Discussed with patient, nurse and Dr. Degroot Pt Condition on Discharge: Stable Discharge Disposition: Discharge to SNF Discharge Time: > 30 minutes Discharge Instructions DIET: Follow Instructions for: Heart Healthy Diet Activities you can perform: See Additionl Instruction Other Activity Instructions: transfer with assistance Follow up Referrals: Cardiology - [address] Childers Echocardiogram PCP Follow-up - 1 Week New Medications: Metoprolol Tartrate (Metoprolol Tartrate) 25 Mg Tab 12.5 MG PO BID for heart, #60 TAB 0 Refills Sulfamethoxazole-Trimethoprim (Bactrim DS) 800-160 Mg Tab 1 TAB PO BID for Infection, #6 TAB 0 Refills Continued Medications: Acetaminophen (Tylenol) 325 Mg Tab 650 MG PO Q4H PRN for PAIN, TAB 0 Refills Albuterol Neb (Albuterol Neb) 0.63 Mg/3 Ml Neb 0.63 MG NEB Q6HR PRN for COUGH/CONGESTION, #25 NEBULE 0 Refills Amlodipine (Norvasc) 5 Mg Tab 5 MG PO DAILY for Blood Pressure Management, #30 TAB 0 Refills Atorvastatin (Lipitor) 10 Mg Tab 10 MG PO HS for Cholesterol Management, #30 TAB 0 Refills Docusate Sodium (Colace) 100 Mg Capsule 100 MG PO HS for Constipation Guaifenesin Liq (Guaifenesin Liq) 100 mg/5 ML Soln 200 MG PO Q4H PRN for COUGH, #1 BOTTLE 0 Refills Lisinopril (Lisinopril) 40 Mg Tab 40 MG PO DAILY for Blood Pressure Management, #30 TAB 0 Refills Melatonin (Melatonin) 3 Mg Tab 3 MG PO HS for Insomnia Meloxicam (Mobic) 7.5 Mg Tab 7.5 MG PO DAILY for Pain, TAB 0 Refills Ranitidine (Zantac) 150 Mg Tab 150 MG PO BID for GERD, #60 TAB 0 Refills Sennosides (Senna-Tabs) 8.6 Mg Tab 8.6 MG PO HS for Constipation, #30 TAB 0 Refills Sertraline (Zoloft) 25 Mg Tab 25 MG PO DAILY for Depression Control, #30 TAB 0 Refills Tramadol (Tramadol) 50 Mg Tab 50 MG PO Q6H PRN for PAIN, TAB 0 Refills Lu Guthrie Apr 16, 2017 13:21
[2017-04-16] MEDS ORDERED: METOPROLOL TARTRATE 25 MG TAB PO SCH (21:00)
== END 2017-04-16 17:58 | DRG 872 ==
LOC: NEPC 16:46 → NEDA 21:28 → N04B 22:48 → OBSVTOIN 23:42
PROVIDERS: ADMIT Family Medicine; ATTEND Family Medicine
DX: A41.51 Sepsis due to Escherichia coli [E. coli] (principal); N39.0 Urinary tract infection, site not specified; I50.9 Heart failure, unspecified; I11.0 Hypertensive heart disease with heart failure; G62.9 Polyneuropathy, unspecified; R74.8 Abnormal levels of other serum enzymes; I25.10 Atherosclerotic heart disease of native coronary artery without angina pectoris; I25.2 Old myocardial infarction; S00.83XA Contusion of other part of head, initial encounter; M54.2 Cervicalgia; E78.5 Hyperlipidemia, unspecified; F32.9 Major depressive disorder, single episode, unspecified; F41.9 Anxiety disorder, unspecified; W05.0XXA Fall from non-moving wheelchair, initial encounter; Z86.73 Personal history of transient ischemic attack (TIA), and cerebral infarction without residual deficits; Z96.652 Presence of left artificial knee joint; Z95.1 Presence of aortocoronary bypass graft; Z99.3 Dependence on wheelchair
CPT/HCPCS: 70450; 71010; 72125; 73140; 73502; 80048; 80053; 80061; 81001; 82550; 83605; 83880; 84443; 84484; 85025; 85610; 85730; 87040; 87077; 87086; 87186; 93005; J0696; J1644